=== PATIENT | female | born 1960 ===

== ENCOUNTER → 2021-07-21 09:11 | Outpatient (CLI) | payer OTHER, SELFPAY ==
--- NOTE | 2021-07-21 | DI.MRI.S_ITS ---
PROCEDURE: MR HAND RT WO/W CON INDICATIONS: SUPERFICIAL FOREIGN BODY OF RIGHT THUMB TECHNIQUE: Noncontrast coronal T1 spin echo and STIR, sagittal T1 spin echo with fat saturation and STIR, axial T1 spin echo and T2 fast spin echo with fat saturation. After the administration of contrast, axial/sagittal/coronal T1 spin echo with fat saturation through the right hand and right thumb. COMPARISON: None. FINDINGS: Image quality: Excellent. Bones: The visualized bone marrow demonstrates normal signal on all sequences. The overlying cortex appears intact. No abnormal intraosseous enhancement. Soft tissues: There is subcutaneous soft tissue swelling and edema over volar aspect of 1st distal phalangeal base with T1 hypointense and T2 hyperintense signal and show heterogeneous contrast enhancement in this area. No discrete soft tissue mass or definite foreign body is identified. No other area of abnormal soft tissue enhancement. The scanned muscles demonstrate normal overall bulk and internal signal. IMPRESSION: 1. Suggestion of cellulitis involving volar aspect of 1st proximal phalangeal base, no discrete drainable fluid collection or definite soft tissue mass is seen. No definite foreign body is identified. A foreign body granuloma in this area cannot be excluded. No other area of abnormal soft tissue enhancement. 2. No marrow edema. No abnormal intraosseous enhancement. No fracture or dislocation. No evidence of osteomyelitis. Dictated by: Michele Cosme M.D. on 07/21/2021 at 11:02 Approved by: Michele Cosme M.D. on 07/21/2021 at 11:07
== END ==
PROVIDERS: PCP Family Medicine; Referring Provider Physician Assistant; Visit Provider Physician Assistant
DX: S60.351A Superficial foreign body of right thumb, initial encounter (principal)
CPT/HCPCS: 73220